=== PATIENT | male | born 1955 | race African-American/Black ===

== ENCOUNTER → 2017-04-01 | Outpatient (CLI) | payer BC, MEDICAID ==
--- NOTE | 2017-04-01 15:31 | RADIOLOGY REPORT (SQ) ---
EXAM DESCRIPTION: KUB COMPLETED DATE/TIME: 04/01/2017 2:53 pm REASON FOR STUDY: T85.691S [facility] COMPL OF INTRAPERITONEAL DIALYSIS CATHETER, SEQUELA T85.691S [facility] C OMPL OF INTRAPERITONEAL DIALYSIS CATHETER, SE COMPARISON: None. NUMBER OF VIEWS: One view. TECHNIQUE: Supine radiographic image of the abdomen acquired. LIMITATIONS: None. FINDINGS: BOWEL GAS PATTERN: Normal bowel gas pattern. No dilated loops. CALCIFICATIONS: No suspicious calcifications. SOFT TISSUES: No gross mass or suggestion of organomegaly. HARDWARE: Intra peritoneal dialysis catheter. BONES: No acute fracture. No worrisome bone lesions. OTHER: No other significant finding. IMPRESSION: NO RADIOGRAPHIC EVIDENCE FOR ACUTE ABDOMINAL DISEASE. TECHNICAL DOCUMENTATION: JOB ID: [id number] [employer]- All Rights Reserved
== END ==
LOC: OD 14:38
PROVIDERS: ATTEND Internal Medicine Nephrology
DX: T85.691S Other mechanical complication of intraperitoneal dialysis catheter, sequela (principal)
CPT/HCPCS: 74000

== ENCOUNTER → 2017-12-02 | Outpatient (CLI) | payer BC, MEDICAID | LOC: OD 10:47 | PROVIDERS: ATTEND Preventive Medicine Undersea and Hyperbaric Medicine | DX: L97.512 Non-pressure chronic ulcer of other part of right foot with fat layer exposed (principal); L97.522 Non-pressure chronic ulcer of other part of left foot with fat layer exposed ==

== ENCOUNTER → 2017-12-07 | Outpatient (CLI) | payer BC, MEDICAID ==
--- NOTE | 2017-12-07 13:59 | RADIOLOGY REPORT (SQ) ---
EXAM DESCRIPTION: ARTERIAL LOWER EXTREM BILAT; PHYSIO ARTERIAL LTD COMPLETED DATE/TIME: 12/07/2017 10:30 am; 12/07/2017 1:43 pm REASON FOR STUDY: ULCER L97.512 NON-PRS CHRONIC ULCER OTH PRT RIGHT FOOT W FAT LAYER COMPARISON: None. TECHNIQUE: Dynamic and static silveira scale and color images acquired of the lower extremity arteries. Additional selected spectral images recorded. ABIs recorded. LIMITATIONS: None. FINDINGS: RIGHT LEG: ABIS: Unable to detect pressures in the posterior tibial or dorsalis pedis arteries. INFLOW ARTERIES: Normal, no obstruction evident. FEMORAL ARTERIES:Triphasic waveforms. Normal, no velocity elevation to suggest focal stenosis. Normal color Doppler evaluation. No aneurysm. POPLITEAL ARTERY:Biphasic waveforms. Normal, no velocity elevation to suggest focal stenosis. Normal color Doppler evaluation. No aneurysm. PATENT TIBIOPERONEAL TRUNK AND 3 VESSEL RUNOFF: Biphasic waveforms. Diminished flow in the anterior tibial artery. TBI: Not performed. OTHER: No other significant finding. LEFT LEG: ABIS: Unable to detect pressures in the posterior tibial or dorsalis pedis arteries. INFLOW ARTERIES: Normal, no obstruction evident. FEMORAL ARTERIES:Triphasic waveforms. Normal, no velocity elevation to suggest focal stenosis. Normal color Doppler evaluation. No aneurysm. POPLITEAL ARTERY:Biphasic waveforms. Normal, no velocity elevation to suggest focal stenosis. Normal color Doppler evaluation. No aneurysm. PATENT TIBIOPERONEAL TRUNK AND 3 VESSEL RUNOFF: Biphasic waveform in the posterior tibial artery. Di minished flow in the anterior and dorsalis pedis arteries with monophasic waveform. TBI: Not performed. OTHER: No other significant finding. IMPRESSION: 1. DIMINISHED FLOW IN THE DISTAL CALF VESSELS CONSISTENT WITH DISTAL SMALL VESSEL DISEASE. NO OCCLUS IONS OR SIGNIFICANT STENOSIS OF THE MAJOR VESSELS (FEMORAL AND POPLITEAL ARTERIES). 2. UNABLE TO DETECT PRESSURES IN THE ANKLE VESSELS AND THEREFORE UNABLE TO DETERMINE ANKLE-BRACHIAL I NDEX. COMMENT: [facility] NORMAL: Greater than 1.0 MINIMAL DISEASE: 0.9 to 1.0 CLAUDICATION: 0.5 to 0.9 SEVERE ARTERIAL DISEASE: Less than 0.5 [facility] NORMAL: Greater than 1.0 (1.2 If Heavy Calcifications) NORMAL TO MILD ISCHEMIA: 0.8 to 1.0 MODERATE ISCHEMIA: 0.4 to 0.8 SEVERE ISCHEMIA: Less than 0.4 TECHNICAL DOCUMENTATION: JOB ID: [id number]- All Rights Reserved Reading location - IP/workstation name: [email or web address]
--- NOTE | 2017-12-07 13:59 | RADIOLOGY REPORT (SQ) ---
EXAM DESCRIPTION: ARTERIAL LOWER EXTREM BILAT; PHYSIO ARTERIAL LTD COMPLETED DATE/TIME: 12/07/2017 10:30 am; 12/07/2017 1:43 pm REASON FOR STUDY: ULCER L97.512 NON-PRS CHRONIC ULCER OTH PRT RIGHT FOOT W FAT LAYER COMPARISON: None. TECHNIQUE: Dynamic and static silveira scale and color images acquired of the lower extremity arteries. Additional selected spectral images recorded. ABIs recorded. LIMITATIONS: None. FINDINGS: RIGHT LEG: ABIS: Unable to detect pressures in the posterior tibial or dorsalis pedis arteries. INFLOW ARTERIES: Normal, no obstruction evident. FEMORAL ARTERIES:Triphasic waveforms. Normal, no velocity elevation to suggest focal stenosis. Normal color Doppler evaluation. No aneurysm. POPLITEAL ARTERY:Biphasic waveforms. Normal, no velocity elevation to suggest focal stenosis. Normal color Doppler evaluation. No aneurysm. PATENT TIBIOPERONEAL TRUNK AND 3 VESSEL RUNOFF: Biphasic waveforms. Diminished flow in the anterior tibial artery. TBI: Not performed. OTHER: No other significant finding. LEFT LEG: ABIS: Unable to detect pressures in the posterior tibial or dorsalis pedis arteries. INFLOW ARTERIES: Normal, no obstruction evident. FEMORAL ARTERIES:Triphasic waveforms. Normal, no velocity elevation to suggest focal stenosis. Normal color Doppler evaluation. No aneurysm. POPLITEAL ARTERY:Biphasic waveforms. Normal, no velocity elevation to suggest focal stenosis. Normal color Doppler evaluation. No aneurysm. PATENT TIBIOPERONEAL TRUNK AND 3 VESSEL RUNOFF: Biphasic waveform in the posterior tibial artery. Di minished flow in the anterior and dorsalis pedis arteries with monophasic waveform. TBI: Not performed. OTHER: No other significant finding. IMPRESSION: 1. DIMINISHED FLOW IN THE DISTAL CALF VESSELS CONSISTENT WITH DISTAL SMALL VESSEL DISEASE. NO OCCLUS IONS OR SIGNIFICANT STENOSIS OF THE MAJOR VESSELS (FEMORAL AND POPLITEAL ARTERIES). 2. UNABLE TO DETECT PRESSURES IN THE ANKLE VESSELS AND THEREFORE UNABLE TO DETERMINE ANKLE-BRACHIAL I NDEX. COMMENT: [facility] NORMAL: Greater than 1.0 MINIMAL DISEASE: 0.9 to 1.0 CLAUDICATION: 0.5 to 0.9 SEVERE ARTERIAL DISEASE: Less than 0.5 [facility] NORMAL: Greater than 1.0 (1.2 If Heavy Calcifications) NORMAL TO MILD ISCHEMIA: 0.8 to 1.0 MODERATE ISCHEMIA: 0.4 to 0.8 SEVERE ISCHEMIA: Less than 0.4 TECHNICAL DOCUMENTATION: JOB ID: [id number]- All Rights Reserved Reading location - IP/workstation name: [email or web address]
== END ==
LOC: SP 08:39
PROVIDERS: ATTEND Preventive Medicine Undersea and Hyperbaric Medicine
DX: L97.512 Non-pressure chronic ulcer of other part of right foot with fat layer exposed (principal)
CPT/HCPCS: 93922; 93925

== ENCOUNTER → 2018-01-08 | Outpatient (CLI) | payer BC, MEDICAID ==
[2018-01-08 11:35] LABS: ABSOLUTE BASOPHILS # (AUTO) 0.1 10^3/uL (0.0-0.2); ABSOLUTE EOSINOPHILS # (AUTO) 0.3 10^3/uL (0.0-0.6); ABSOLUTE LYMPHOCYTES (AUTO) 1.5 10^3/uL (0.5-4.7); ABSOLUTE MONOCYTES (AUTO) 0.6 10^3/uL (0.1-1.4); ABSOLUTE NEUT (AUTO) 4.9 10^3/uL (1.7-8.2); BASOPHILS % (AUTO) 0.7 % (0-2); EOSINOPHILS % (AUTO) 3.4 % (0-6); HEMATOCRIT 38.9 % (37.9-51.0); HEMOGLOBIN 13.3 g/dL (13.5-17.0); LYMPHOCYTES % (AUTO) 20.4 % (13-45); MEAN CORPUSCULAR HEMOGLOBIN 31.4 pg (27.0-33.4); MEAN CORPUSCULAR HGB CONC 34.2 g/dL (32.0-36.0); MEAN CORPUSCULAR VOLUME 92 fl (80-97); MONOCYTES % (AUTO) 8.6 % (3-13); PLATELET COUNT 195 10^3/uL (150-450); RED BLOOD COUNT 4.24 10^6/uL (4.35-5.55); RED CELL DISTRIBUTION WIDTH 15.5 % (11.5-14.0); SEGMENTED NEUTROPHILS % (AUTO) 66.9 % (42-78); TOTAL CELLS COUNTED % (AUTO) 100 %; WHITE BLOOD COUNT 7.4 10^3/uL (4.0-10.5)
[2018-01-08 11:53] LABS: ALANINE AMINOTRANSFERASE 23 U/L (21-72); ALBUMIN 4.6 g/dL (3.5-5.0); ALKALINE PHOSPHATASE 122 U/L (38-126); ASPARTATE AMINO TRANSFERASE 15 U/L (17-59); BILIRUBIN,DIRECT 0.4 mg/dL (0.0-0.4); BILIRUBIN,TOTAL 0.5 mg/dL (0.2-1.3); BLOOD UREA NITROGEN 45 mg/dL (7-20); C-REACTIVE PROTEIN 22.5 mg/L (<10.0); CALCIUM 8.8 mg/dL (8.4-10.2); GLUCOSE 115 mg/dL (75-110); POTASSIUM 5.1 mmol/L (3.6-5.0); TOTAL PROTEIN 8.2 g/dL (6.3-8.2)
[2018-01-08 11:56] LABS: ANION GAP 17 (5-19); CARBON DIOXIDE 27 mmol/L (22-30); CHLORIDE 96 mmol/L (98-107); SODIUM 140.4 mmol/L (137-145)
--- NOTE | 2018-01-08 12:00 | RADIOLOGY REPORT (SQ) ---
EXAM DESCRIPTION: FOOT RIGHT COMPLETE COMPLETED DATE/TIME: 01/08/2018 11:16 am REASON FOR STUDY: NON-PRS CHRONIC ULCER OTH PRT RIGHT FOOT W FAT LAYER EXPOSED E11.621 TYPE 2 DIABE AGUSTO MELLITUS WITH FOOT ULCER L97.512 NON-PRS CHRONIC ULCER OTH PRT RIGHT FOOT W FAT LAYER COMPARISON: 08/08/2014 NUMBER OF VIEWS: Three views. TECHNIQUE: AP, lateral and oblique radiographic images acquired of the right foot. LIMITATIONS: None. FINDINGS: MINERALIZATION: Normal. BONES: Bones of the right foot are stable when compared to 08/08/2014. There are postsurgical and deg enerative changes. There is no conventional radiographic evidence of osteomyelitis there is some sof t tissue edema along the ventral aspect of foot with a skin defect consistent with ulcer. JOINTS: No effusions. SOFT TISSUES: No soft tissue swelling. No foreign body. OTHER: No other significant finding. IMPRESSION: Postsurgical and degenerative changes. No conventional radiographic evidence of osteomy elitis. TECHNICAL DOCUMENTATION: JOB ID: [id number] [employer]- All Rights Reserved Reading location - IP/workstation name: [email or web address]
[2018-01-08 12:29] LABS: ERYTHROCYTE SEDIMENTATION RATE 54 mm/hr (0-20)
== END ==
LOC: OD 10:05
PROVIDERS: ATTEND Preventive Medicine Undersea and Hyperbaric Medicine
DX: E11.621 Type 2 diabetes mellitus with foot ulcer (principal); L97.512 Non-pressure chronic ulcer of other part of right foot with fat layer exposed
CPT/HCPCS: 36415; 80053; 85025; 85652; 86140

== ENCOUNTER → 2018-02-19 | Outpatient (CLI) | payer BC, MEDICAID ==
[2018-02-19 14:00] LABS: ABSOLUTE EOSINOPHILS # (AUTO) 0.4 10^3/uL (0.0-0.6); ABSOLUTE LYMPHOCYTES (AUTO) 1.8 10^3/uL (0.5-4.7); ABSOLUTE MONOCYTES (AUTO) 0.6 10^3/uL (0.1-1.4); ABSOLUTE NEUT (AUTO) 4.9 10^3/uL (1.7-8.2); BASOPHILS % (AUTO) 0.6 % (0-2); EOSINOPHILS % (AUTO) 4.7 % (0-6); HEMATOCRIT 34.3 % (37.9-51.0); HEMOGLOBIN 11.7 g/dL (13.5-17.0); LYMPHOCYTES % (AUTO) 23.9 % (13-45); MEAN CORPUSCULAR HEMOGLOBIN 31.7 pg (27.0-33.4); MEAN CORPUSCULAR HGB CONC 34.1 g/dL (32.0-36.0); MEAN CORPUSCULAR VOLUME 93 fl (80-97); MONOCYTES % (AUTO) 7.2 % (3-13); PLATELET COUNT 205 10^3/uL (150-450); RED BLOOD COUNT 3.69 10^6/uL (4.35-5.55); RED CELL DISTRIBUTION WIDTH 14.5 % (11.5-14.0); SEGMENTED NEUTROPHILS % (AUTO) 63.6 % (42-78); TOTAL CELLS COUNTED % (AUTO) 100 %; WHITE BLOOD COUNT 7.7 10^3/uL (4.0-10.5)
[2018-02-19 14:29] LABS: ALANINE AMINOTRANSFERASE 13 U/L (21-72); ALKALINE PHOSPHATASE 109 U/L (38-126); ANION GAP 13 (5-19); ASPARTATE AMINO TRANSFERASE 12 U/L (17-59); BILIRUBIN,DIRECT 0.4 mg/dL (0.0-0.4); BILIRUBIN,TOTAL 0.4 mg/dL (0.2-1.3); BLOOD UREA NITROGEN 30 mg/dL (7-20); C-REACTIVE PROTEIN 18.9 mg/L (<10.0); CALCIUM 8.4 mg/dL (8.4-10.2); CARBON DIOXIDE 28 mmol/L (22-30); CHLORIDE 97 mmol/L (98-107); GLUCOSE 197 mg/dL (75-110); POTASSIUM 4.7 mmol/L (3.6-5.0); SODIUM 138.1 mmol/L (137-145); TOTAL PROTEIN 7.3 g/dL (6.3-8.2)
--- NOTE | 2018-02-19 14:40 | RADIOLOGY REPORT (SQ) ---
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 NUMBER OF VIEWS: Three views. TECHNIQUE: AP, lateral and oblique radiographic images acquired of the right and left foot. LIMITATIONS: None. FINDINGS: MINERALIZATION: Normal. BONES: Amputation of the left forefoot. No evidence of osteomyelitis. There appears to be fusion of the 1st metatarsal-phalangeal joint with amputation of the 1st distal phalanx. There is subluxation of the metatarsophalangeal joints. The 4th digit appears to have been amputated. Calcaneal spurs. JOINTS: See above. SOFT TISSUES: No soft tissue swelling. No foreign body. OTHER: No other significant finding. IMPRESSION: Findings as described. There is no evidence of osteomyelitis. TECHNICAL DOCUMENTATION: JOB ID: [id number] [employer]- All Rights Reserved Reading location - IP/workstation name: [email or web address]
[2018-02-19 14:41] LABS: ERYTHROCYTE SEDIMENTATION RATE 78 mm/hr (0-20)
== END ==
LOC: WC 12:49
PROVIDERS: ATTEND Preventive Medicine Undersea and Hyperbaric Medicine
DX: E11.621 Type 2 diabetes mellitus with foot ulcer (principal); L97.512 Non-pressure chronic ulcer of other part of right foot with fat layer exposed
CPT/HCPCS: 36415; 80053; 83036; 85025; 85652; 86140